=== PATIENT | male | born 1975 | race Caucasian/White ===

== ENCOUNTER 2017-09-10 12:23 | Emergency (ER) | payer MEDICAID, OTHER ==
[2017-09-10] MEDS: IBUPROFEN 800 MG TAB PO (13:41)
== END 2017-09-10 14:10 | disposition home or self-care (01) ==
LOC: FTE 12:23
DX: S52.602A Unspecified fracture of lower end of left ulna, initial encounter for closed fracture (principal); S52.502A Unspecified fracture of the lower end of left radius, initial encounter for closed fracture; V49.40XA Driver injured in collision with unspecified motor vehicles in traffic accident, initial encounter
CPT/HCPCS: 29105; 73110-LT; 73630-LT; 99283-25